=== PATIENT | female | born 1970 | race Hispanic/Latino ===

== ENCOUNTER 2019-03-11 08:50 | Outpatient (CLI) | payer BC ==
--- NOTE | 2019-03-11 09:40 | MMO ---
Bilateral MAMMO Bilat Screen [facility]. CLINICAL HISTORY: Patient is 48 years old and is seen for screening. The patient has no family history of breast cancer. The patient has no personal history of cancer. VIEWS: The views performed were: bilateral craniocaudal with tomosynthesis and bilateral mediolateral oblique with tomosynthesis. MAMMOGRAM FINDINGS: There are scattered fibroglandular densities. There are benign appearing calcifications seen in both breasts. There are no suspicious masses, suspicious calcifications, or new areas of architectural distortion. IMPRESSION: THERE IS NO MAMMOGRAPHIC EVIDENCE OF MALIGNANCY. A ROUTINE FOLLOW-UP MAMMOGRAM IN 1 YEAR IS RECOMMENDED. THE RESULTS OF THIS EXAM WERE SENT TO THE PATIENT. ACR BI-RADS Category 2 - Benign finding MAMMOGRAPHY NOTE: 1. A negative mammogram report should not delay a biopsy if a dominant of clinically suspicious mass is present. 2. Approximately 10% to 15% of breast cancers are not detected by mammography. 3. Adenosis and dense breasts may obscure an underlying neoplasm. Reported by: SALLY HOLLOWAY MD Electonically Signed: [id number]
== END 2019-03-11 08:51 | disposition home or self-care (01) ==
LOC: BICMAMMO 08:50
PROVIDERS: ATTEND Family Medicine
DX: Z12.31 Encounter for screening mammogram for malignant neoplasm of breast (principal)
CPT/HCPCS: 77063; 77067

== ENCOUNTER 2020-06-01 15:54 | Inpatient (IN) | payer BC, OTHER ==
[2020-06-01] MEDS ORDERED: Ondansetron PF 4 MG/2 ML Vial IVP PRN (17:31)
[2020-06-01] MEDS ORDERED: Ondansetron ODT 4 MG TAB PO PRN (17:31)
[2020-06-01] MEDS ORDERED: Sodium Chloride 0.9% 1,000 ML IV SCH ×2 (17:45→19:30)
[2020-06-01 18:21] LABS: ALT (SGPT) 703 U/L (8-55); AST (SGOT) 749 U/L (5-34); Albumin 3.9 g/dL (3.5-5.0); Alkaline Phosphatase 195 U/L (40-110); Anion Gap 11 mmol/L (10-20); BUN (Urea Nitrogen) 10 mg/dL (9.8-20.1); Bilirubin, Total 1.2 mg/dL (0.2-1.2); Calc. Creatinine Clearance 0 mL/min (70-130); Calcium 8.3 mg/dL (7.8-10.44); Carbon Dioxide 25 mmol/L (22-29); Chloride 105 mmol/L (98-107); Estimated GFR-MDRD Greater than 90; Globulin 3.2 g/dL (2.4-3.5); Glucose 109 mg/dL (70-105); Phosphorus 2.9 mg/dL (2.3-4.7); Potassium 3.5 mmol/L (3.5-5.1); Protein, Total 7.1 g/dL (6.0-8.3); Sodium 137 mmol/L (136-145)
[2020-06-01 18:23] VITALS: BMI 30.9
[2020-06-01 18:35] LABS: Lipase 5071 U/L (8-78)
[2020-06-01] MEDS ORDERED: Calcium Carbonate 500 MG ChewTAB PO PRN (19:00)
[2020-06-01] MEDS ORDERED: Morphine 2 MG/ML VIAL SLOW IVP PRN (19:10)
[2020-06-01] MEDS ORDERED: Sodium Chloride 0.9% (PF) 10 ML VIAL FS PRN (19:30)
--- NOTE | 2020-06-01 19:46 | HP ---
PRIMARY CARE PHYSICIAN: [facility]. CHIEF COMPLAINT: Abdominal discomfort of sudden onset. HISTORY OF PRESENT ILLNESS: The patient is a 50-year-old female who [facility] with sudden onset of abdominal pain that started last night. The pain acutely got worse at 5 a.m. It was epigastric in region radiating to her back. It was 10/10, constant without any aggravating or relieving factor. She felt nauseous; however, denies any vomiting. No fever or chills reported. No syncope, palpitations, lightheadedness, dizziness, or syncope reported. In the emergency room, her workup was consistent with acute pancreatitis diagnosed on CT. There was no lipase done. She was transferred to this facility for hospital admission. She received IV morphine, Zofran, and IV fluids in the emergency room. PAST MEDICAL HISTORY: 1. Hypothyroidism. 2. Hypertension, diet controlled. 3. Hyperlipidemia, currently not on any medications. PAST SURGICAL HISTORY: 1. Appendectomy. 2. C-sections. 3. Ovarian cyst removal. ALLERGIES: NO KNOWN DRUG ALLERGIES. CURRENT HOME MEDICATIONS: The patient is currently out of all of her medications. She used to be on thyroid medications in the past. SOCIAL HISTORY: The patient currently lives at home with her family. No smoking, alcohol, or drug use. FAMILY HISTORY: Negative for premature coronary artery disease or GI malignancy. REVIEW OF SYSTEMS: All other review of systems was reviewed and was found negative. PHYSICAL EXAMINATION: VITAL SIGNS: Temperature 97.9, blood pressure 148/84 with heart rate of 75, and O2 saturation 94% on room air. Respiration was 18. GENERAL: A 50-year-old female in mild distress due to abdominal discomfort. HEENT: Head, atraumatic and normocephalic. Sclerae are anicteric. Dry mucous membranes. No oral lesion. NECK: Supple. No JVD appreciated. No carotid bruit. LUNGS: Clear to auscultation bilaterally with diminished air entry at bilateral bases. HEART: S1 and S2 present. Regular rate and rhythm. No rubs or gallops. ABDOMEN: Soft with epigastric tenderness. No rebound or guarding noted. Bowel sounds were present. EXTREMITIES: No edema or calf tenderness. NEUROLOGIC: Grossly nonfocal. Moves all 4 extremities. PSYCHIATRY: Alert, awake, and oriented x3. SKIN: Warm and dry. LYMPH NODES: No palpable lymph nodes in the neck. Peripheral, vascular, and radial pulses are palpable bilaterally. MUSCULOSKELETAL: No joint swelling or tenderness. LABORATORY FINDINGS: EKG showed normal sinus rhythm. CT scan of the abdomen at [facility] ER showed mild peripancreatic edema surrounding the pancreatic tail consistent with acute pancreatitis. There was no organized fluid collection. It also showed hepatic steatosis. COVID testing was negative. Urinalysis was negative for wbc or bacteria. LFTs showed ALT of 714, AST of 998, albumin of 4.0, GGT 509. Amylase was 1465. Hemoglobin was 14.4 with hematocrit 41.5, platelet of 204, and WBC of 9.0. Sodium was 137 with potassium 4.3, chloride 102, BUN of 16, creatinine 0.5. IMPRESSION: 1. Acute pancreatitis, etiology unclear. 2. Hypothyroidism. The patient is currently out of levothyroxine. 3. History of hypertension, diet controlled. 4. History of hyperlipidemia, diet controlled. 5. Obesity with a body mass index of 31. 6. Fatty liver on CT. 7. Hyponatremia. 8. Hyperglycemia, rule out diabetes mellitus type 2. PLAN: The patient will be monitored on the medical floor. She will require 2 to 3 days for stabilization. We will give her 1 L IV normal saline bolus followed by IV fluids at 150 an hour. Monitor input and output closely. Her BISAP and [place] score are probably lower. We will get LDH in a.m. Lipase at this time is 5071. We will check triglycerides in a.m. N.p.o. except for ice chips. Gastroenterology consultation. DVT prophylaxis with Lovenox. Walking program. Check orthostatics in a.m. The patient understands the above plan of care. Job ID: [id number] [facility]
[2020-06-01] MEDS: D5 1/2 NS w/20 mEq KCL 1,000 ML IV SCH (20:10)
[2020-06-01] MEDS: Pantoprazole 40 MG VIAL IVP SCH (20:11)
[2020-06-01] MEDS ORDERED: Famotidine/PF 20 mg/2ml Vial SLOW IVP SCH (21:00)
[2020-06-02] MEDS: D5 1/2 NS w/20 mEq KCL 1,000 ML IV SCH ×4 (03:00→23:00)
[2020-06-02 06:10] LABS: #Eosinphils 0.1 thou/uL (0.0-0.7); #Lymphocytes 1.7 thou/uL (1.20-3.40); #Monocytes 0.3 thou/uL (0.11-0.59); #Neutrophils 4.4 thou/uL (1.40-6.50); %Basophils 0.3 % (0.0-1.0); %Eosinophils 0.9 % (0.0-10.0); %Lymphocytes 26.3 % (21.0-51.0); %Neutrophils 67.5 % (42.0-75.0); Hemoglobin 13.2 g/dL (12.0-16.0); Mean Corpuscular HGB CONC 33.3 g/dL (32.0-36.0); Mean Corpuscular Volume 95.9 fL (78.0-98.0); Mean Platelet Volume 10.2 fL (7.4-10.4); Platelet Count 174 thou/uL (130-400); RBC Distribution Width 12.1 % (11.5-14.5); Red Blood Cell (RBC) Count 4.14 mill/uL (4.20-5.40); White Blood Cell (WBC) Count 6.6 thou/uL (4.8-10.8)
[2020-06-02 06:18] LABS: PTT 23.7 sec (22.9-36.1)
[2020-06-02 06:47] LABS: CRP (Inflammatory) 1.22 mg/dL (= or < 0.5)
[2020-06-02 06:51] LABS: Cardiac Risk 3.9 (Less than 4.5)
[2020-06-02 07:01] LABS: Phosphorus 2.2 mg/dL (2.3-4.7)
--- NOTE | 2020-06-02 07:39 | ULT ---
RIGHT UPPER QUADRANT ABDOMINAL ULTRASOUND: HISTORY: Epigastric abdominal pain. COMPARISON: None. TECHNIQUE: Multiplanar, houston scale, and color Doppler images were obtained in a right upper quadrant abdominal u ltrasound. FINDINGS: The liver demonstrates increased echogenicity. There is an area of fatty sparring in the genesis hepat is. No intrahepatic biliary dilatation is seen. The gallbladder is contracted. There is possible shadowing and this could be secondary to stone with in a contracted gallbladder. The common bile duct is normal measuring 4 mm. The visualized portions of the pancreas are unremarkable. The right kidney is normal in echogenicity without hydronephrosis or calculus and measures 10.3 cm in length. IMPRESSION: 1. Fatty liver. 2. Possible cholelithiasis. POS: SIVAKUMARA
[2020-06-02] MEDS: Pantoprazole 40 MG VIAL IVP SCH ×2 (08:21→21:03)
[2020-06-02] MEDS ORDERED: Potassium Phosphate 15 MMOL in Sodium Chloride 0.9% 250 ML 250 ML IVPB SCH (08:30)
[2020-06-02] MEDS ORDERED: FLU VACC QS2020-21(6MOS UP)/PF 60 MCG/0.5 ML SYRINGE IM ONE (09:00)
[2020-06-02] MEDS ORDERED: Enoxaparin Sodium 40 MG/0.4 ML SYRINGE SC SCH (09:00)
[2020-06-02 09:46] LABS: ALT (SGPT) 491 U/L (8-55); AST (SGOT) 287 U/L (5-34); Albumin 3.5 g/dL (3.5-5.0); Alkaline Phosphatase 171 U/L (40-110); Anion Gap 11 mmol/L (10-20); BUN (Urea Nitrogen) 7 mg/dL (9.8-20.1); Bilirubin, Total 1.3 mg/dL (0.2-1.2); Calc. Creatinine Clearance 108 mL/min (70-130); Calcium 8.1 mg/dL (7.8-10.44); Carbon Dioxide 21 mmol/L (22-29); Chloride 109 mmol/L (98-107); Estimated GFR-MDRD Greater than 90; Globulin 2.9 g/dL (2.4-3.5); Glucose 146 mg/dL (70-105); Potassium 3.6 mmol/L (3.5-5.1); Protein, Total 6.4 g/dL (6.0-8.3); Sodium 137 mmol/L (136-145)
--- NOTE | 2020-06-02 10:11 | PDOC.FMACP ---
Advance Care Planning - Note Summary: Advanced Care Planning was discussed. The diagnosis, prognosis and goals of care were discussed. Appropriate forms and documentation to accomplish the goals of care were discussed. All questions were answered. The Palliative Care Team will be engaged to assist with completion of any outstanding forms that are needed.
[2020-06-02] MEDS: traMADol HCl 50 MG TAB PO PRN (12:02)
[2020-06-02] MEDS ORDERED: Ketorolac Tromethamine 30 MG/ML VIAL IVP PRN (16:29)
[2020-06-02] MEDS ORDERED: Acetaminophen 500 MG TAB PO PRN (16:29)
[2020-06-02] MEDS ORDERED: Ketorolac Tromethamine 30 MG/ML VIAL IVP SCH (17:00)
--- NOTE | 2020-06-02 19:17 | PDOC.HOSPP ---
- Subjective Encounter Date: 06/02/20 Encounter Time: 08:30 Subjective: Patient seen and examined for acute pancreatitis. Abdominal pain improving. Mild nausea. Denies any other complaints. - Objective Vital Signs & Weight: Vital Signs (12 hours) Temp Pulse Resp BP BP BP Pulse Ox 06/02/20 15:40 98.5 F 64 16 131/86 97 06/02/20 11:08 98.5 F 67 18 121/84 93 L 06/02/20 08:00 112/78 114/66 130/76 06/02/20 07:35 98.0 F 75 16 114/77 96 Weight Weight 153 lb 8 oz I&O: 06/01/20 06/02/20 06/03/20 06:59 06:59 06:59 Intake Total 2830 1800 Balance 2830 1800 Result Diagrams: 06/02/20 05:47 06/02/20 05:47 Additional Labs: 06/01/20 17:52: AST 749 H, ALT 703 H, Alkaline Phosphatase 195 H, Lipase 5071 H 06/02/20 05:47: Lipase 1496 H 06/02/20 05:47: RBC 4.14 L, MCH 32.0 H 06/02/20 05:47: TSH 3rd Generation 17.5835 H 06/02/20 05:47: C-Reactive Protein 1.22 H 06/02/20 05:47: Lactate Dehydrogenase 517 H 06/02/20 05:47: Phosphorus 2.2 L 06/02/20 05:47: Chloride 109 H, Carbon Dioxide 21 L, BUN 7 L, Total Bilirubin 1.3 H, AST 287 H, ALT 491 H, Alkaline Phosphatase 171 H Radiology Reviewed by me: No (Abdominal ultrasound? Cholelithiasis) Hospitalist ROS - Review of Systems Respiratory: denies: cough, dry, shortness of breath, hemoptysis, SOB with excertion, pleuritic pain, sputum, wheezing, other Cardiovascular: denies: chest pain, palpitations, orthopnea, paroxysmal noc. dyspnea, edema, light headedness, other - Medication Medications: Active Medications Generic Name Dose Route Start Last Admin Trade Name Freq PRN Reason Stop Dose Admin Enoxaparin Sodium 40 mg 06/02/20 09:00 06/02/20 08:21 Enoxaparin Sodium 40 Mg/0.4 Ml Syringe SC 40 mg 0900 PAUL Administration Potassium Chloride/Dextrose/Sod Cl 1,000 mls @ 150 mls/hr 06/01/20 20:00 06/02/20 17:51 D5 1/2 Ns W/20 Meq Kcl IV 1,000 mls .[id number] PAUL Administration Levofloxacin 500 mg/ Device 100 mls @ 100 mls/hr 06/02/20 17:00 06/02/20 17:51 IVPB 100 mls Q24HR PAUL Administration Pantoprazole Sodium 40 mg 06/01/20 21:00 06/02/20 08:21 Pantoprazole 40 Mg Vial IVP 40 mg Q12HR PAUL Administration Tramadol HCl 50 mg 06/02/20 09:24 06/02/20 12:02 Tramadol Hcl 50 Mg Tab PO 50 mg Q4H PRN Administration Moderate Pain (4-6) - Exam General Appearance: NAD Neck: supple, no JVD Heart: RRR, no gallops, no rubs, normal peripheral pulses Respiratory: no wheezes, no rales, no ronchi, normal chest expansion Gastrointestinal: soft, non-distended, normal bowel sounds, no guarding, no rigidity, tender to palpation (Mild epigastric tenderness) Extremities: no cyanosis, no clubbing, no edema Skin: normal turgor Neurological: no new deficit Hosp A/P - Plan DVT proph w/SCDs 1. Acute pancreatitis? Gallstone pancreatitis 2. Hypothyroidism. 3. Hypertension, diet controlled. 4. Hyperlipidemia, diet controlled. 5. Obesity with a body mass index of 31. 6. Fatty liver on CT. 7. Hyponatremia/Hypokalemia/hypophosphatemia 8. Impaired glucose tolerance PLAN: 06/02 Continue IV fluids with dextrose. Replace electrolytes. Await GI input. Continue npo. Pain control with IV morphine. Triglycerides normal. Vitals remained stable. Ambulate in the hallway with walking program. Monitor input and output closely. Lipase improving. Recheck labs including lipase in a.m. Will probably need surgical consultation. Plan discussed with the patient with the help of vacuum kettle cook.
--- NOTE | 2020-06-02 20:08 | CON ---
DATE OF CONSULTATION: 06/02/2020 REASON FOR CONSULTATION: Pancreatitis, abdominal pain. HISTORY OF PRESENT ILLNESS: The patient is a 50-year-old female who was transferred from [facility] for evaluation of abdominal pain and pancreatitis. History is obtained through an sign language interpreter. Reportedly, she had sudden onset of severe abdominal pain the night before. The pain is mostly centered in the epigastrium with radiation to the back and it was rated 10/10. She did have nausea without any vomiting. She denies having had any fever. There is no evidence of GI bleeding such as melena or coffee-ground or hematemesis. The patient presented to the [facility] ER. CT there demonstrated peripancreatic edema without any fluid collection or evidence of pancreatic necrosis. The patient was subsequently transferred to [facility] for evaluation. Currently, her pain is significantly better, nearly resolved. She denies having any further nausea. She has not had any bowel movement since admission. On further questioning, she did have a milder and shorter episode of similar pain three months ago, for which she did not seek any medical evaluation. The patient denies having had any previous pancreatitis. There is no family history of pancreatitis. She does not consume alcohol. PAST MEDICAL HISTORY: 1. Hypothyroidism. 2. Hyperlipidemia. 3. Status post appendectomy. 4. C-sections. ALLERGIES: NONE. MEDICATIONS: Currently on: 1. Lovenox. 2. Synthroid. 3. Morphine. 4. Ondansetron p.r.n. 5. Pantoprazole 40 mg daily. Home medication includes levothyroxine 75 mcg daily. SOCIAL HISTORY: The patient denies any tobacco usage. She has no alcohol usage. FAMILY HISTORY: Negative for any known GI problem, liver disease, or GI malignancy. There is no pancreatitis. REVIEW OF SYSTEMS: Ten-point review of systems did not show any other reported symptoms. No pertinent positives or negatives. PHYSICAL EXAMINATION: VITAL SIGNS: Temperature is 98.5, blood pressure 121/84, and pulse of 67. GENERAL: She is alert, conversant without distress. HEENT: Shows anicteric sclerae. Oropharynx is clear and moist. CV: Exam shows normal S1 and S2. Regular rate and rhythm. CHEST: Shows a breath sounds. ABDOMEN: Protuberant, mildly tender in epigastrium. No guarding or rebound. She has no distention. No tympany. She does have faint bowel sounds. Mild tenderness without any guarding or rebound. EXTREMITIES: Shows no edema. LABORATORY DATA: WBC 6.6, hemoglobin 13.2, and platelet count 174. Coagulation is normal. Electrolytes within normal range. Creatinine 0.67. Bilirubin is 1.3, AST 287 down from 749, ALT 491 down from 703, alkaline phosphatase 171 down from 195, lipase 1496 down from 5071. Abdominal ultrasound showed a contracted gallbladder with shadowing suggestive of cholelithiasis. Common duct measures 4 mm. ASSESSMENT: 1. Biliary pancreatitis, uncomplicated and resolving. 2. Cholelithiasis. RECOMMENDATIONS: 1. Cholecystectomy, we will consult surgery. 2. No other GI recommendation, we will sign off. Please recall if needed. Job ID: [id number]
--- NOTE | 2020-06-02 22:23 | CON ---
DATE OF CONSULTATION: HISTORY OF PRESENT ILLNESS: Cassandra Carney is a 50-year-old [place]er-speaking only female, who I am seen at the request of hospitalist for biliary pancreatitis. She is [place]er-speaking only and document manager service was utilized. She had a friend in the room with her. The patient was admitted 2 days ago for elevated liver function tests and lipase. Ultrasound reveals gallstones with normal bile duct caliber. I have been asked to see her regarding cholecystectomy. The patient reports having biliary symptoms for the past, more than a year. She has had right upper quadrant epigastric pain, back radiation on occasion. On this occasion, her pain was more severe. She presented to the emergency room. Her lipase was elevated and bilirubin was slightly elevated. ALLERGIES: NONE. TOBACCO: None. ALCOHOL: Rarely. MEDICATIONS: None routinely. PAST SURGICAL HISTORY: C-sections x4. PAST MEDICAL HISTORY: Noncontributory. SOCIAL HISTORY: The patient works at [employer]. FAMILY HISTORY: Negative. REVIEW OF SYSTEMS: Negative. PHYSICAL EXAMINATION: VITAL SIGNS: Height 4 feet 11 inches, weight 153 pounds, BMI 31. Temperature 98.5, pulse 64, blood pressure 131/86. HEAD, EARS, EYES, NOSE, AND THROAT: Unremarkable. LUNGS: Clear to auscultation. CARDIAC: Regular rate and rhythm. No murmur or gallop. ABDOMEN: Soft. Mild tenderness in upper abdomen. No guarding. EXTREMITIES: Unremarkable. LABORATORY DATA: White count 6, hemoglobin 13. Coagulation studies negative. COVID test is pending. Sodium 137, potassium 3.6, chloride 109, BUN 7, creatinine 0.67, bilirubin is 1.3 up from 1.2 yesterday. AST and ALT slightly elevated at 287 and 491, alkaline phosphatase elevated at 171, lipase 5071 yesterday, 1496 today. ASSESSMENT AND PLAN: Resolving biliary pancreatitis. I recommend laparoscopic video cholecystectomy cholangiograms. Risk of choledocholithiasis is very slow considering nondilated bile duct. Her pain is resolving. Her pancreatitis is resolving by lipase and clinical course. We would perform laparoscopic cholecystectomy cholangiograms today if COVID test was obtained. COVID antigen obtained at the referring facility. We will get her COVID screen today. Risks of infection, bleeding, visceral/biliary injury, open procedure, possibility of ERCP discussed with a document manager. Questions answered. Job ID: [id number]
[2020-06-03] MEDS: D5 1/2 NS w/20 mEq KCL 1,000 ML IV SCH ×2 (04:17→13:56)
[2020-06-03] MEDS ORDERED: Levothyroxine Sodium 75 MCG TAB PO SCH (06:00)
[2020-06-03 06:36] LABS: #Eosinphils 0.1 thou/uL (0.0-0.7); #Lymphocytes 1.2 thou/uL (1.20-3.40); #Monocytes 0.5 thou/uL (0.11-0.59); %Basophils 0.2 % (0.0-1.0); %Eosinophils 0.6 % (0.0-10.0); %Lymphocytes 15.1 % (21.0-51.0); %Monocytes 6.9 % (0.0-10.0); %Neutrophils 77.2 % (42.0-75.0); Hemoglobin 14.2 g/dL (12.0-16.0); Mean Corpuscular HGB CONC 33.1 g/dL (32.0-36.0); Mean Corpuscular Volume 96.7 fL (78.0-98.0); Mean Platelet Volume 9.7 fL (7.4-10.4); Platelet Count 164 thou/uL (130-400); RBC Distribution Width 11.9 % (11.5-14.5); Red Blood Cell (RBC) Count 4.45 mill/uL (4.20-5.40); White Blood Cell (WBC) Count 7.8 thou/uL (4.8-10.8)
[2020-06-03 06:57] LABS: Phosphorus 2.2 mg/dL (2.3-4.7)
[2020-06-03 06:58] LABS: ALT (SGPT) 420 U/L (8-55); AST (SGOT) 164 U/L (5-34); Albumin 3.8 g/dL (3.5-5.0); Alkaline Phosphatase 213 U/L (40-110); Anion Gap 11 mmol/L (10-20); BUN (Urea Nitrogen) 6 mg/dL (9.8-20.1); Bilirubin, Total 1.7 mg/dL (0.2-1.2); Calc. Creatinine Clearance 99 mL/min (70-130); Calcium 8.9 mg/dL (7.8-10.44); Carbon Dioxide 24 mmol/L (22-29); Chloride 105 mmol/L (98-107); Estimated GFR-MDRD 84; Globulin 3.3 g/dL (2.4-3.5); Glucose 132 mg/dL (70-105); Lipase 247 U/L (8-78); Potassium 3.8 mmol/L (3.5-5.1); Protein, Total 7.1 g/dL (6.0-8.3); Sodium 136 mmol/L (136-145)
[2020-06-03] MEDS ORDERED: Potassium Phosphate 15 MMOL in Sodium Chloride 0.9% 250 ML 250 ML IVPB SCH (08:00)
[2020-06-03 08:04] LABS: SARS-CoV-2 NAA Rapid Test Not Detected (NotDetected)
[2020-06-03] MEDS: Pantoprazole 40 MG VIAL IVP SCH (10:21)
[2020-06-03] MEDS ORDERED: Rocuronium Bromide 10 MG/ML (10ML VIAL) ONE (11:03)
[2020-06-03] MEDS ORDERED: PROPOFOL 200 MG/20 ML VIAL ONE (11:03)
[2020-06-03] MEDS ORDERED: Glycopyrrolate 0.2 MG/ML 5 ML SYRINGE ONE (11:03)
[2020-06-03] MEDS ORDERED: Dexamethasone 20 MG/5 ML VIAL ONE (11:03)
[2020-06-03] MEDS ORDERED: Lidocaine 1% PF 5 ML VIAL ONE (11:03)
[2020-06-03] MEDS ORDERED: Ondansetron PF 4 MG/2 ML Vial ONE (11:03)
[2020-06-03] MEDS ORDERED: Iothalamate Meglumine 60% 50 ML VIAL FS ONE (11:59)
[2020-06-03] MEDS ORDERED: Bupivacaine HCl 0.5%/Epinephrine 1:200,000/PF 30 ml Vial ONE (11:59)
[2020-06-03] MEDS ORDERED: Midazolam HCl 2 mg/2 ml Vial ONE (12:10)
[2020-06-03] MEDS ORDERED: Fentanyl 100 MCG/2 ML VIAL ONE ×2 (12:10→14:31)
[2020-06-03] MEDS ORDERED: Levofloxacin 500 mg/D5W 100 ml Premix Bag ONE (13:35)
--- NOTE | 2020-06-03 14:11 | RAD ---
Intraoperative cholangiogram: 06/03/2020 HISTORY: Pancreatitis, cholecystectomy FINDINGS: 2 intraoperative images are provided. There is contrast media within the duodenum, the comm on bile duct, and multiple intrahepatic biliary ducts. No filling defect is seen. The pancreatic duct is partially opacified and demonstrates nonspecific mild distention. IMPRESSION: Intraoperative cholangiogram as detailed above.
[2020-06-03] MEDS ORDERED: Promethazine HCl 25 MG/ML VIAL IM PRN (14:14)
[2020-06-03] MEDS ORDERED: Promethazine HCl 25 MG/ML VIAL SLOW IVP PRN (14:14)
[2020-06-03] MEDS ORDERED: Ondansetron HCl/PF 4 MG/2 ML Vial IVP PRN (14:14)
[2020-06-03] MEDS ORDERED: Ketorolac Tromethamine 30 MG/ML VIAL ONE (15:01)
[2020-06-03 15:26] VITALS: BP 126/85; TEMP 97.7
[2020-06-03] MEDS: traMADol HCl 50 MG TAB PO PRN (16:21)
--- NOTE | 2020-06-03 16:51 | DIS ---
DATE OF ADMISSION: 06/01/2020 DATE OF DISCHARGE: 06/03/2020 DISCHARGE DISPOSITION: Home. FOLLOWUP: Follow up with primary care physician at [facility] in 1 week. The patient was evaluated on the day of discharge. Denies any new complaints. Vital signs showed temperature 97.7 with pulse rate of 66, respiration of 16, blood pressure 126/85 with O2 saturation 100% on room air. DIAGNOSTIC TESTS: Lipase on admission was 5071 and at discharge was 247. Free T4 was 0.73, TSH was 17.5. LDH 517. Phosphorus of 2.2. Total bilirubin 1.7 with AST of 164 at discharge. AST on admission was 7.49. Alkaline phosphatase on admission was 703 and at discharge was 420. Hemoglobin A1c was 6.0. BRIEF HOSPITAL COURSE: The patient is a 50-year-old female with hypertension, hyperlipidemia, and hypothyroidism, presented to the hospital with sudden onset of abdominal discomfort. The pain was epigastric in region radiating to her back. It was 10/10, constant without any aggravating or relieving factor. She also had nausea. Please refer to the history and physical for further details. The patient was admitted to the hospital with a diagnosis of acute pancreatitis, suspected due to gallstones. Abdominal ultrasound showed contracted gallbladder with questionable cholelithiasis with fatty liver. She had a CT scan done at [facility], that was consistent with acute pancreatitis. She was initially kept n.p.o. and was started on IV fluids. Her triglyceride levels were normal. Her symptoms gradually improved with conservative management. The patient was evaluated by Gastroenterology and General Surgery. She underwent laparoscopic cholecystectomy today without any complication. She has been cleared by consultants for discharge. The patient also had mild hyperglycemia and her workup was consistent with impaired glucose tolerance. Lifestyle modification was emphasized. FINAL DIAGNOSES: 1. Acute gallstone pancreatitis. 2. Hypothyroidism. 3. Hypertension. 4. Hyperlipidemia. 5. Obesity with a BMI of 31. 6. Fatty liver. 7. Multiple electrolyte abnormalities including hyponatremia, hypokalemia, and hypophosphatemia. 8. Impaired glucose tolerance. Time coordinating the discharge of this patient was 34 minutes. The patient was extensively counseled on lifestyle modification. Job ID: [id number]
--- NOTE | 2020-06-03 19:21 | OP ---
DATE OF PROCEDURE: 06/03/2020 PREOPERATIVE DIAGNOSES: Biliary pancreatitis, cholecystitis, and cholelithiasis. POSTOPERATIVE DIAGNOSES: Biliary pancreatitis, cholecystitis, and cholelithiasis. PROCEDURE PERFORMED: Laparoscopic video cholecystectomy, normal intraoperative cholangiograms, fluoroscopy used. ANESTHESIA: General, local 0.5% Marcaine with epinephrine 30 mL, total volume used. DESCRIPTION OF PROCEDURE: Patient was taken to the operating room, where under general anesthesia, abdomen was prepared with ChloraPrep and draped in routine fashion. Local anesthetic was infiltrated in the skin and subcutaneous tissue about all port sites. Infraumbilical incision was made, pneumoperitoneum to 15 mmHg was obtained with a Veress needle, replaced with a 5 port and laparoscope inserted. Right subxiphoid incision was made and 11 port placed, right subcostal incision made in midclavicular and anterior axillary line. The 5 port was placed. Liver appeared to be normal. Gallbladder fundus grasped at the cephalad, infundibulum grasped and retracted laterally. Cystic artery and duct dissected free. Critical view obtained. Cystic duct singly clipped on the gallbladder side, opening made in the cystic duct. Cholangiocatheter inserted. Cholangiogram was obtained using fluoroscopy, revealing free flow of contrast into the duodenum without filling defects in the common hepatic, common bile, left and right hepatic ducts. Cholangiocatheter removed. Cystic duct stump doubly clipped. Cystic artery and duct divided. Gallbladder dissected free from liver bed obtaining good hemostasis prior to division of final peritoneal attachments. Gallbladder and contents placed in endobag and removed. Irrigant and pneumoperitoneum evacuated after ensuring good hemostasis obtained with cautery. All skin incisions approximated with interrupted subdermal 4-0 Monocryl and Holladay glue applied. Job ID: [id number]
[2020-06-07] MEDS ORDERED: Ibuprofen 600 MG TAB PO PRN (16:30)
== END 2020-06-03 20:00 | disposition home or self-care (01) | DRG 417 ==
LOC: T4-B 15:54
PROVIDERS: ADMIT Internal Medicine; ATTEND Internal Medicine
PROC: 3E02340 Introduction of Influenza Vaccine into Muscle, Percutaneous Approach (ICD-10-PCS; 2020-06-02)
PROC: 0FT44ZZ Resection of Gallbladder, Percutaneous Endoscopic Approach (ICD-10-PCS; principal; 2020-06-03)
PROC: BF131ZZ Fluoroscopy of Gallbladder and Bile Ducts using Low Osmolar Contrast (ICD-10-PCS; 2020-06-03)
DX: K80.60 Calculus of gallbladder and bile duct with cholecystitis, unspecified, without obstruction (principal); K85.10 Biliary acute pancreatitis without necrosis or infection; E87.1 Hypo-osmolality and hyponatremia; Z20.828 Contact with and (suspected) exposure to other viral communicable diseases; E03.9 Hypothyroidism, unspecified; I10 Essential (primary) hypertension; E78.5 Hyperlipidemia, unspecified; E66.9 Obesity, unspecified; K76.0 Fatty (change of) liver, not elsewhere classified; E87.6 Hypokalemia; E83.39 Other disorders of phosphorus metabolism; E74.39 Other disorders of intestinal carbohydrate absorption; R73.9 Hyperglycemia, unspecified; Z23 Encounter for immunization; Z68.31 Body mass index [BMI] 31.0-31.9, adult; Z90.49 Acquired absence of other specified parts of digestive tract; Z79.890 Hormone replacement therapy
CPT/HCPCS: 36415; 47532; 76705; 80053; 80061; 83036; 83615; 83690; 83735; 84100; 84439; 84443; 85025; 85610; 85730; 86140; 87635; 88304; 90471; 90662; C9113; G0008; J0690; J1100; J1610; J1650; J1885; J1956; J2250; J2270; J2405; J2704; J3010; J3480; J7050; U0002; U0003

== ENCOUNTER 2021-05-26 10:18 | Outpatient (CLI) | payer BC | END 2021-05-26 10:19 | disposition home or self-care (01) | LOC: BICMAMMO 10:18 | PROVIDERS: ATTEND Student in an Organized Health Care Education/Training Program | DX: Z12.31 Encounter for screening mammogram for malignant neoplasm of breast (principal) | CPT/HCPCS: 77063; 77067 ==